=== PATIENT | female | born 1970 | race Caucasian/White ===

== ENCOUNTER 2021-12-18 14:19 | Emergency (ER) | payer MEDICARE, OTHER ==
[2021-12-18 14:56] LABS: RED BLOOD COUNT 3.83 M/UL (4.00-5.10); WHITE BLOOD COUNT 6.6 K/UL (4.5-11.0)
[2021-12-18 15:24] LABS: BUN/CREATININE RATIO 14 (0-10)
[2021-12-18] MEDS ORDERED: BUMETANIDE1 MG PO (19:26)
== END 2021-12-18 19:50 | disposition home or self-care (01) ==
LOC: ER1 14:19
DX: J81.1 Chronic pulmonary edema (principal); I25.10 Atherosclerotic heart disease of native coronary artery without angina pectoris; E11.9 Type 2 diabetes mellitus without complications; Z20.822 Contact with and (suspected) exposure to COVID-19
CPT/HCPCS: 0240U; 70450; 71045; 80053; 81001; 82550; 82553; 83605; 83690; 83880; 84484; 85025; 85652; 86140; 93005; 96374; 99285; J1940